=== PATIENT | female | born 1955 | race Caucasian/White ===

== ENCOUNTER → 2020-12-29 | Day surgery (SDC) | payer OTHER ==
[~2020-12-29] VITALS: Ht 165.1 cm; Wt 48.5 kg
[~2020-12-29] MED LIST: DAILY VALUE1 EACH PO; LORAZEPAM 0.5M0.5 MG PO; OLMESARTAN MEDO20 MG PO; OXYCODONE-ACET1 EACH PO; PANTOPRAZOLE SO40 MG PO; SERTRALINE HCL50 MG PO; TRAZODONE 50MG50 MG PO; VITAMIN D310 MC3 PO; ZYRTEC10 M3 PO
== END | disposition home or self-care (01) ==
LOC: FAS 08:05
DX: D50.9 Iron deficiency anemia, unspecified (principal); K21.9 Gastro-esophageal reflux disease without esophagitis; I10 Essential (primary) hypertension; M81.0 Age-related osteoporosis without current pathological fracture; E55.9 Vitamin D deficiency, unspecified; Z88.2 Allergy status to sulfonamides; F17.200 Nicotine dependence, unspecified, uncomplicated; R63.4 Abnormal weight loss; Z85.048 Personal history of other malignant neoplasm of rectum, rectosigmoid junction, and anus
CPT/HCPCS: J2250; J2704; J7120

== ENCOUNTER 2021-02-11 11:03 | Inpatient (IN) | payer OTHER ==
[~2021-02-11] VITALS: Ht 165 cm; Wt 48.0 kg
[2021-02-11 12:38] LABS: BILIRUBIN 1+ mg/dL (NEGATIVE); BLOOD NEGATIVE Ery/uL (NEGATIVE); CLARITY CLEAR (CLEAR); COLOR YELLOW (YELLOW); GLUCOSE (U) NORMAL (NORMAL); LEUKOCYTES NEGATIVE Leu/uL (NEGATIVE); NITRITE NEGATIVE (NEGATIVE); PROTEIN 1+ mg/dL (NEGATIVE); SPECIFIC GRAVITY 1.025 (1.001-1.030); UROBILINOGEN 0.2 mg/dL (0.2-1.0); pH 5.5 (5.0-9.0)
[2021-02-11 12:45] LABS: BACTERIA TRACE; URINARY RBC RARE
[2021-02-11 12:55] LABS: BASOPHIL 0.1 % (0-2); EOSINOPHIL 0 % (0-5); HCT 42.4 % (37.0-47.0); HGB 14.2 g/dl (12.5-16.0); MCH 29.1 pg (25.0-31.0); MCHC 33.5 g/dL (32.0-36.0); MCV 86.9 fL (78.0-100.0); MONOCYTE 4.5 % (0-12); MPV 8.5 fL (6.0-9.5); NRBC 0; PLT 737 K/uL (150-400); RBC 4.88 M/uL (4.20-5.40); RDW 20.3 % (11.5-14.0); WBC 18.9 K/uL (4.0-10.5)
[2021-02-11 13:12] LABS: ALBUMIN 3.5 g/dL (3.4-5.0); BILIRUBIN - TOTAL 0.3 mg/dL (0.2-1.0); CREATININE 0.75 mg/dL (0.51-0.95); GLOBULIN (CALCULATION) 4.1 g/dL; POTASSIUM 4.7 mmol/L (3.5-5.1); TOTAL PROTEIN 7.6 g/dL (6.4-8.2)
[2021-02-11 20:21] LABS: HGB 12.3 g/dL (12.5-16.0)
[2021-02-12 05:11] LABS: BASOPHIL 0.1 % (0-2); EOSINOPHIL 0.1 % (0-5); HCT 38.2 % (37.0-47.0); HGB 12.5 g/dl (12.5-16.0); LYMPHOCYTE 7.1 % (15-48); MCH 29.1 pg (25.0-31.0); MCHC 32.7 g/dL (32.0-36.0); MONOCYTE 6.4 % (0-12); MPV 8.7 fL (6.0-9.5); NEUTROPHIL 85.9 % (41-80); NRBC 0; PLT 587 K/uL (150-400); RBC 4.29 M/uL (4.20-5.40); RDW 20.6 % (11.5-14.0); WBC 13.6 K/uL (4.0-10.5)
[2021-02-12 05:26] LABS: BUN/CREAT RATIO (CALC) 29.8 RATIO; CREATININE 0.57 mg/dL (0.51-0.95); POTASSIUM 4.1 mmol/L (3.5-5.1)
[2021-02-13 04:32] LABS: BASOPHIL 0.2 % (0-2); EOSINOPHIL 0 % (0-5); HCT 38.9 % (37.0-47.0); HGB 12.5 g/dl (12.5-16.0); LYMPHOCYTE 10.5 % (15-48); MCH 29.1 pg (25.0-31.0); MCHC 32.1 g/dL (32.0-36.0); MCV 90.7 fL (78.0-100.0); MONOCYTE 7.9 % (0-12); MPV 8.8 fL (6.0-9.5); NRBC 0; PLT 577 K/uL (150-400); RBC 4.29 M/uL (4.20-5.40); RDW 20.7 % (11.5-14.0)
[2021-02-13 04:55] LABS: BUN/CREAT RATIO (CALC) 36.2 RATIO; CREATININE 0.58 mg/dL (0.51-0.95); POTASSIUM 3.6 mmol/L (3.5-5.1)
[2021-02-13 14:31] LABS: BILIRUBIN 2+ mg/dL (NEGATIVE); BLOOD NEGATIVE Ery/uL (NEGATIVE); CLARITY CLEAR (CLEAR); COLOR YELLOW (YELLOW); GLUCOSE (U) NORMAL (NORMAL); LEUKOCYTES NEGATIVE Leu/uL (NEGATIVE); NITRITE NEGATIVE (NEGATIVE); PROTEIN NEGATIVE (NEGATIVE); SPECIFIC GRAVITY >=1.030 (1.001-1.030); UROBILINOGEN 0.2 mg/dL (0.2-1.0)
[2021-02-14 04:26] LABS: BUN/CREAT RATIO (CALC) 32.7 RATIO; CREATININE 0.52 mg/dL (0.51-0.95); MAGNESIUM 1.7 mg/dL (1.8-2.4); PHOSPHORUS 3.8 mg/dL (2.6-4.7); POTASSIUM 3.8 mmol/L (3.5-5.1)
[2021-02-14 04:50] LABS: BASOPHIL 0.1 % (0-2); EOSINOPHIL 0 % (0-5); HCT 39.1 % (37.0-47.0); HGB 12.5 g/dl (12.5-16.0); LYMPHOCYTE 4.8 % (15-48); MCH 29.1 pg (25.0-31.0); MCV 91.1 fL (78.0-100.0); MONOCYTE 5.8 % (0-12); MPV 9.6 fL (6.0-9.5); NRBC 0; PLT 539 K/uL (150-400); RBC 4.29 M/uL (4.20-5.40); RDW 20.1 % (11.5-14.0); WBC 14.1 K/uL (4.0-10.5)
[2021-02-15 04:14] LABS: BASOPHIL 0.1 % (0-2); EOSINOPHIL 0.4 % (0-5); HCT 34.8 % (37.0-47.0); HGB 11.4 g/dl (12.5-16.0); LYMPHOCYTE 6.5 % (15-48); MCH 29.8 pg (25.0-31.0); MCHC 32.8 g/dL (32.0-36.0); MCV 90.9 fL (78.0-100.0); MONOCYTE 7.1 % (0-12); NEUTROPHIL 85.7 % (41-80); NRBC 0; PLT 392 K/uL (150-400); RBC 3.83 M/uL (4.20-5.40); RDW 19.7 % (11.5-14.0); WBC 10.9 K/uL (4.0-10.5)
[2021-02-15 04:29] LABS: BUN/CREAT RATIO (CALC) 26.2 RATIO; CREATININE 0.42 mg/dL (0.51-0.95); MAGNESIUM 2.1 mg/dL (1.8-2.4); PHOSPHORUS 1.8 mg/dL (2.6-4.7); POTASSIUM 3.6 mmol/L (3.5-5.1)
[2021-02-16 05:32] LABS: BASOPHIL 0.1 % (0-2); EOSINOPHIL 1.8 % (0-5); HCT 30.5 % (37.0-47.0); LYMPHOCYTE 7.4 % (15-48); MCH 29.9 pg (25.0-31.0); MCHC 32.8 g/dL (32.0-36.0); MCV 91.3 fL (78.0-100.0); MONOCYTE 6.9 % (0-12); MPV 9.3 fL (6.0-9.5); NEUTROPHIL 83.4 % (41-80); NRBC 0; PLT 324 K/uL (150-400); RBC 3.34 M/uL (4.20-5.40); RDW 19.3 % (11.5-14.0); WBC 10.5 K/uL (4.0-10.5)
[2021-02-16 05:46] LABS: BUN/CREAT RATIO (CALC) 16.2 RATIO; CREATININE 0.37 mg/dL (0.51-0.95); MAGNESIUM 1.7 mg/dL (1.8-2.4); PHOSPHORUS 2.1 mg/dL (2.6-4.7); POTASSIUM 3.5 mmol/L (3.5-5.1)
[2021-02-16] MEDS ORDERED: COLACE100 MG PO (11:15)
[2021-02-16] MEDS ORDERED: ACETAMINOPHEN500 M1 PO (11:15)
[2021-02-16] MEDS ORDERED: OXY-IR 5MG5 MG PO (11:15)
[2021-02-16] MEDS ORDERED: MOTRIN600 MG PO (11:15)
[2021-02-17 06:20] LABS: BASOPHIL 0.2 % (0-2); EOSINOPHIL 3.1 % (0-5); HCT 30.3 % (37.0-47.0); HGB 9.8 g/dl (12.5-16.0); LYMPHOCYTE 9.4 % (15-48); MCH 29.5 pg (25.0-31.0); MCHC 32.3 g/dL (32.0-36.0); MCV 91.3 fL (78.0-100.0); MONOCYTE 9.7 % (0-12); MPV 10.3 fL (6.0-9.5); NEUTROPHIL 77.1 % (41-80); NRBC 0; PLT 321 K/uL (150-400); RBC 3.32 M/uL (4.20-5.40); RDW 19.2 % (11.5-14.0); WBC 8.5 K/uL (4.0-10.5)
[2021-02-17 06:29] LABS: BUN/CREAT RATIO (CALC) 10.8 RATIO; CREATININE 0.37 mg/dL (0.51-0.95); MAGNESIUM 1.7 mg/dL (1.8-2.4); PHOSPHORUS 2.9 mg/dL (2.6-4.7); POTASSIUM 3.6 mmol/L (3.5-5.1)
[2021-02-18 09:26] LABS: HCT 30.1 % (37.0-47.0); HGB 9.9 g/dl (12.5-16.0); MCH 29.8 pg (25.0-31.0); MCHC 32.9 g/dL (32.0-36.0); MCV 90.7 fL (78.0-100.0); MPV 9.2 fL (6.0-9.5); RBC 3.32 M/uL (4.20-5.40); RDW 18.7 % (11.5-14.0); WBC 10.1 K/uL (4.0-10.5)
[2021-02-18 10:18] LABS: BUN/CREAT RATIO (CALC) 11.8 RATIO; CREATININE 0.34 mg/dL (0.51-0.95); MAGNESIUM 1.8 mg/dL (1.8-2.4); POTASSIUM 3.8 mmol/L (3.5-5.1)
[2021-02-19 05:08] LABS: BASOPHIL 0.2 % (0-2); EOSINOPHIL 3.6 % (0-5); HCT 30.8 % (37.0-47.0); HGB 9.9 g/dl (12.5-16.0); LYMPHOCYTE 7.5 % (15-48); MCH 29.6 pg (25.0-31.0); MCHC 32.1 g/dL (32.0-36.0); MCV 91.9 fL (78.0-100.0); MONOCYTE 8.1 % (0-12); MPV 8.8 fL (6.0-9.5); NEUTROPHIL 80.4 % (41-80); NRBC 0; PLT 319 K/uL (150-400); RBC 3.35 M/uL (4.20-5.40); RDW 18.6 % (11.5-14.0); WBC 9.7 K/uL (4.0-10.5)
[2021-02-19 05:36] LABS: BUN/CREAT RATIO (CALC) 8.1 RATIO; CREATININE 0.37 mg/dL (0.51-0.95); MAGNESIUM 1.8 mg/dL (1.8-2.4); PHOSPHORUS 3.6 mg/dL (2.6-4.7); POTASSIUM 3.7 mmol/L (3.5-5.1)
[2021-02-21 05:13] LABS: BASOPHIL 0.3 % (0-2); EOSINOPHIL 6.9 % (0-5); HCT 30.1 % (37.0-47.0); HGB 9.7 g/dl (12.5-16.0); LYMPHOCYTE 14.7 % (15-48); MCH 29.8 pg (25.0-31.0); MCHC 32.2 g/dL (32.0-36.0); MCV 92.6 fL (78.0-100.0); MONOCYTE 10.5 % (0-12); MPV 9.5 fL (6.0-9.5); NEUTROPHIL 67.1 % (41-80); NRBC 0; PLT 361 K/uL (150-400); RBC 3.25 M/uL (4.20-5.40); RDW 18.1 % (11.5-14.0); WBC 6.3 K/uL (4.0-10.5)
[2021-02-21 06:00] LABS: BUN/CREAT RATIO (CALC) 13.6 RATIO; CREATININE 0.44 mg/dL (0.51-0.95); POTASSIUM 3.7 mmol/L (3.5-5.1)
== END 2021-02-21 14:27 | disposition home or self-care (01) | DRG 329 ==
LOC: FER 11:03 → FMS 15:44
PROVIDERS: Internal Medicine; Nurse Practitioner Family; Student in an Organized Health Care Education/Training Program; ADMIT Allergy & Immunology Allergy
PROC: 0DB80ZZ Excision of Small Intestine, Open Approach (ICD-10-PCS; principal; 2021-02-13)
PROC: 0DNU0ZZ Release Omentum, Open Approach (ICD-10-PCS; 2021-02-13)
DX: K56.52 Intestinal adhesions [bands] with complete obstruction (principal); K65.8 Other peritonitis; E87.1 Hypo-osmolality and hyponatremia; K91.89 Other postprocedural complications and disorders of digestive system; K56.7 Ileus, unspecified; Z20.822 Contact with and (suspected) exposure to COVID-19; F41.9 Anxiety disorder, unspecified; F32.9 Major depressive disorder, single episode, unspecified; I10 Essential (primary) hypertension; K44.9 Diaphragmatic hernia without obstruction or gangrene; F17.210 Nicotine dependence, cigarettes, uncomplicated; D50.9 Iron deficiency anemia, unspecified; K21.9 Gastro-esophageal reflux disease without esophagitis; E55.9 Vitamin D deficiency, unspecified; D64.9 Anemia, unspecified; Z88.2 Allergy status to sulfonamides; Z98.51 Tubal ligation status; Z90.49 Acquired absence of other specified parts of digestive tract; Z90.89 Acquired absence of other organs; Z86.718 Personal history of other venous thrombosis and embolism; Z85.048 Personal history of other malignant neoplasm of rectum, rectosigmoid junction, and anus; Z79.899 Other long term (current) drug therapy; Z80.0 Family history of malignant neoplasm of digestive organs; Z84.89 Family history of other specified conditions; I69.312 Visuospatial deficit and spatial neglect following cerebral infarction; Z98.890 Other specified postprocedural states; Y83.8 Other surgical procedures as the cause of abnormal reaction of the patient, or of later complication, without mention of misadventure at the time of the procedure
CPT/HCPCS: 36415; 74018; 74019; 74250; 80048; 80053; 81001; 81003; 82150; 82271; 83605; 83690; 83735; 84100; 85018; 85025; 87040; 87077; 87186; 93005; C9113; J1100; J1170; J1642; J1644; J1650; J2001; J2060; J2250; J2270; J2370; J2405; J2543; J2550; J2704; J2710; J2765; J3010; J3475; J3480; J7030; J7050; J7120; Q9967; U0002